=== PATIENT | female | born 1995 | race Caucasian/White ===

== ENCOUNTER 2019-04-15 18:25 | Emergency (ER) | payer OTHER ==
[~2019-04-15] VITALS: Ht 172.7 cm; Wt 92.1 kg
[2019-04-15 18:39] VITALS: BP 124/77
--- NOTE | 2019-04-15 18:56 | NUR ---
C/O L SIDED PELVIC PAIN 6/10 X 1 DAY, ACCOMPANIED BY L BREAST PAIN X 1 WEEK. PT ADDS NAUSEA AND BROWN VAGINAL DISCHARGE. DENIES DYSURIA, FEVER, VOMITING OR DIARRHEA. STATES SHE IS SEXUALLY ACTIVE AND HAS NOT TAKEN HOME TEST. BOWEL SOUNDS ACTIVE IN ALL 4 QUADRANTS, ABDOMEN TENDER TO TOUCH IN LLQ. L UPPER BREAST TENDER TO TOUCH. PT ALERT AND AWAKE. VS STABLE. AMBULATORY WITH STEADY GAIT. HX: NONE RX: NONE
--- NOTE | 2019-04-15 19:10 | NUR ---
RECIEVED REPORT FROM CYNDIE LIZAMA. PATIENT SUPINE IN BED, FRIEND AT BEDSIDE. PROVIDED WITH WARM BLANKET. NO OTHER NEEDS STATED AT THIS TIME.
[2019-04-15] MEDS ORDERED: KETOROLAC 30 MG/ML VIAL IM ONE (19:20)
--- NOTE | 2019-04-15 19:43 | NUR ---
US at bedside.
--- NOTE | 2019-04-15 20:14 | NUR ---
DR TERRELL AT BEDSIDE, CHAPERONED VAGINAL EXAM AND BREAST EXAM. PATIENT TOLERATED WELL.
[2019-04-15 21:25] VITALS: BP 132/78
[2019-04-17 08:09] LABS: CHLAMYDIA TRACHOMATIS AMP DNA Negative (Negative)
== END 2019-04-15 21:22 | disposition home or self-care (01) ==
LOC: MED 18:25
DX: N83.202 Unspecified ovarian cyst, left side (principal)
CPT/HCPCS: 36415; 76856; 87210; 87491; 93976; 96372; 99284; J1885; Q0092

== ENCOUNTER 2019-08-10 05:54 | Emergency (ER) | payer OTHER ==
[~2019-08-10] VITALS: Ht 172.7 cm; Wt 92.1 kg
[2019-08-10 06:02] VITALS: BP 136/86
[2019-08-10 06:52] VITALS: BP 136/86
== END 2019-08-10 06:53 | disposition home or self-care (01) ==
LOC: MED 06:01
DX: J02.9 Acute pharyngitis, unspecified (principal); R05 Cough
CPT/HCPCS: 99283

== ENCOUNTER 2020-10-29 19:14 | Emergency (ER) | payer OTHER ==
[~2020-10-29] VITALS: Ht 172.7 cm; Wt 97.5 kg
[2020-10-29 19:27] VITALS: BP 110/70
--- NOTE | 2020-10-29 20:00 | NUR ---
AT BEDSIDE EVALUATING PT.
--- NOTE | 2020-10-29 20:01 | NUR ---
PT PRESENTED TO ED C/O RT SIDED NUMNBESS AND TINGLING. NO ASYMETRICAL SIGNAL TIMER OR SMILE. A&OX4. DENIES ANY TRUAMA OR INJURY. NO OBVIOUS DEFMORITY NOTED. VSS. STEADY GAIT NOTED. CMS INTACT. 4/10 PAIN. NEG FAST SCREEN. 4M M PERRLA BRISK. CLEAR SPEECH. ALLERGIES: LATEX, AMOXICILLIN, PCN. PMH: UTERINE FIBROIDS
--- NOTE | 2020-10-29 20:05 | NUR ---
CT WITH CONTRAST CONSENT FORM SIGNED BY PT.
[2020-10-29 20:26] LABS: BASOPHILS % (AUTO) 0.2 % (0.0-2.0); EOSINOPHILS # (AUTO) 0.1 K/uL (0-0.4); EOSINOPHILS % (AUTO) 1.1 % (0.0-4.0); HEMATOCRIT 37.3 % (36-48); HEMOGLOBIN 12.6 g/dL (12.0-16.0); LYMPHOCYTES # (AUTO) 2.8 K/uL (2.5-16.5); LYMPHOCYTES % (AUTO) 30.2 % (20.5-51.1); MEAN CORPUSCULAR HEMOGLOBIN 31 pg (27-31); MEAN CORPUSCULAR HGB CONC 34 g/dL (33-37); MEAN CORPUSCULAR VOLUME 90.8 fL (80-94); MONOCYTES # (AUTO) 0.7 K/uL (0.8-1.0); MONOCYTES % (AUTO) 7.6 % (1.7-9.3); NEUTROPHILS # (AUTO) 5.7 K/uL (1.8-7.7); NEUTROPHILS % (AUTO) 60.9 % (42.2-75.2); PLATELET COUNT (AUTO) 224 K/uL (140-450); RED BLOOD CELL COUNT(AUTO) 4.11 MIL/uL (4.20-5.40); RED CELL DISTRIBUTION WIDTH 13.1 % (11.6-13.7); WHITE BLOOD COUNT (AUTO) 9.3 K/uL (4.8-10.8)
--- NOTE | 2020-10-29 20:43 | NUR ---
PT TAKEN TO CT VIA W/C.
[2020-10-29 20:53] LABS: ALBUMIN 3.7 g/dL (3.4-5.0); ANION GAP 14.2 (8-16); CARBON DIOXIDE 23.7 mmol/L (21-32); CREATININE 0.7 mg/dL (0.6-1.3); POTASSIUM 3.9 mmol/L (3.5-5.1); TOTAL BILIRUBIN 0.2 mg/dL (0.0-1.0)
--- NOTE | 2020-10-29 21:05 | NUR ---
PT RETURNED BACK FROM CT VIA W/C.
[2020-10-29 22:00] VITALS: BP 132/76
--- NOTE | 2020-10-29 22:00 | NUR ---
Patient discharged with v/s stable. Written and verbal after care instructions given and explained. Patient alert, oriented and verbalized understanding of instructions. Ambulatory with steady gait. All questions addressed prior to discharge. ID band removed. Patient advised to follow up with PMD. Opportunity to ask questions provided and answered.
== END 2020-10-29 22:00 | disposition home or self-care (01) ==
LOC: MED 19:14
DX: R20.0 Anesthesia of skin (principal); Z88.0 Allergy status to penicillin; Z88.1 Allergy status to other antibiotic agents; Z91.040 Latex allergy status
CPT/HCPCS: 36415; 70470; 80053; 81025; 85025; 99285; Q9967; 99284

== ENCOUNTER 2020-11-01 05:28 | Emergency (ER) | payer OTHER ==
[~2020-11-01] VITALS: Ht 172.7 cm; Wt 97.1 kg
[2020-11-01 05:31] VITALS: BP 141/91
--- NOTE | 2020-11-01 05:31 | NUR ---
TO BED AMBULATORY
[2020-11-01] MEDS ORDERED: KETOROLAC 30 MG/ML VIAL IVP ONE (06:05)
[2020-11-01] MEDS ORDERED: NACL 0.9% 1,000 ML IV ONE (06:05)
--- NOTE | 2020-11-01 06:30 | NUR ---
LABS DRAWN AND TAKEN TO LAB.
[2020-11-01 06:40] LABS: BASOPHILS % (AUTO) 0.2 % (0.0-2.0); EOSINOPHILS # (AUTO) 0.1 K/uL (0-0.4); EOSINOPHILS % (AUTO) 1.1 % (0.0-4.0); HEMATOCRIT 41.2 % (36-48); LYMPHOCYTES # (AUTO) 2.4 K/uL (2.5-16.5); LYMPHOCYTES % (AUTO) 29.3 % (20.5-51.1); MEAN CORPUSCULAR HEMOGLOBIN 31 pg (27-31); MEAN CORPUSCULAR HGB CONC 34 g/dL (33-37); MEAN CORPUSCULAR VOLUME 92.1 fL (80-94); MONOCYTES # (AUTO) 0.4 K/uL (0.8-1.0); MONOCYTES % (AUTO) 4.9 % (1.7-9.3); NEUTROPHILS # (AUTO) 5.3 K/uL (1.8-7.7); NEUTROPHILS % (AUTO) 64.5 % (42.2-75.2); PLATELET COUNT (AUTO) 224 K/uL (140-450); RED BLOOD CELL COUNT(AUTO) 4.47 MIL/uL (4.20-5.40); RED CELL DISTRIBUTION WIDTH 13.2 % (11.6-13.7); WHITE BLOOD COUNT (AUTO) 8.3 K/uL (4.8-10.8)
[2020-11-01 06:54] LABS: ALBUMIN 3.9 g/dL (3.4-5.0); ANION GAP 10.9 (8-16); CARBON DIOXIDE 26.6 mmol/L (21-32); CREATININE 0.7 mg/dL (0.6-1.3); POTASSIUM 3.5 mmol/L (3.5-5.1); TOTAL BILIRUBIN 0.4 mg/dL (0.0-1.0)
--- NOTE | 2020-11-01 07:04 | NUR ---
PT. IS A 25 Y/O FEMALE THAT CAME INTO ED WTH C/O OF LEFT SIDE ABDOMINAL PAIN THAT RADIATES TO VAGINAL AREA. PT. STATES THAT AN HOUR AGO SHE WAS AWAKENED IN HER SLEEP BY THE PAIN. PT. RATES PAIN AT A 9/10 ON THE PAIN SCALE. PT. ALSO STATES THAT SHE WAS DIAGNOSED RECENTLY WITH 8CM CYST IN HER OVARIES. SKIN IS PINK/WARM/DRY; AAOX4 WITH EVEN AND STEADY GAIT; HR EVEN AND REGULAR; PT DENIES ANY FEVER, CP, SOB, OR COUGH AT THIS TIME; VSS; PATIENT POSITIONED FOR COMFORT; HOB ELEVATED; BEDRAILS UP X2; BED DOWN. ER MD MADE AWARE OF PT STATUS.
--- NOTE | 2020-11-01 07:22 | NUR ---
REPORT RECEIVED FROM SYDNEY RN, TRANSFER OF CARE AT THIS TIME
--- NOTE | 2020-11-01 08:30 | NUR ---
PT ALERT AND AWAKE, BREATHING EVEN AND UNLABORED. NO DISTRESS NOTED. ALL NEEDS MET AT THIS TIME.
--- NOTE | 2020-11-01 09:30 | NUR ---
PT ALERT AND AWAKE, BREATHING EVEN AND UNLABORED. NO DISTRESS NOTED. ALL NEEDS MET AT THIS TIME.
[2020-11-01] MEDS ORDERED: IBUP-2213 PO (10:40)
--- NOTE | 2020-11-01 10:55 | NUR ---
Patient discharged with v/s stable. Written and verbal after care instructions about abdominal pain given and explained. Patient alert, oriented and verbalized understanding of instructions. Ambulatory with steady gait. All questions addressed prior to discharge. ID band removed. Patient advised to follow up with PMD. Rx of ibuprofen given. Patient educated on indication of medication including possible reaction and side effects. Opportunity to ask questions provided and answered.
[2020-11-01 10:58] VITALS: BP 123/91
[2020-11-01 13:17] LABS: BILIRUBIN,URINE NEGATIVE (NEGATIVE); BLOOD, URINE TRACE-L (NEGATIVE); COLOR,URINE YELLOW (YELLOW); LEUKOCYTE ESTERASE ,URINE NEGATIVE (NEGATIVE); NITRITE, URINE NEGATIVE (NEGATIVE); UGLUCOSE NEGATIVE (NEGATIVE)
[2020-11-01 13:32] LABS: RBC,URINE 0-5 /HPF (0-5); WBC,URINE 0-5 /HPF (0-5)
[2020-11-01 13:34] LABS: APPEARANCE,URINE SLIGHTLY HAZY (CLEAR)
== END 2020-11-01 10:55 | disposition home or self-care (01) ==
LOC: MED 05:28
DX: R10.30 Lower abdominal pain, unspecified (principal); Z79.899 Other long term (current) drug therapy; Z88.1 Allergy status to other antibiotic agents; Z88.0 Allergy status to penicillin; Z91.040 Latex allergy status
CPT/HCPCS: 36415; 74176; 76856; 80053; 81001; 81025; 82150; 83690; 85025; 93976; 96361; 96374; 99285; J1885; J7030

== ENCOUNTER 2020-11-02 23:57 | Emergency (ER) | payer OTHER ==
[~2020-11-02] VITALS: Ht 172.7 cm; Wt 97.1 kg
[~2020-11-02 23:57] MED LIST: IBUP-2213 PO
[2020-11-03 00:06] VITALS: BP 114/70
--- NOTE | 2020-11-03 00:08 | NUR ---
triaged and waiting in ER lobby.
--- NOTE | 2020-11-03 00:53 | NUR ---
LABS DRAWN IN TRIAGE BY SOLAR ENERGY TECHNICIAN. PATIENT AMBUALTED TO LOBBY WITH STEADY GAIT.
--- NOTE | 2020-11-03 00:57 | NUR ---
Pt ambulated to ER Bed 6 w/ steady gait.
[2020-11-03 01:02] LABS: APPEARANCE,URINE SL CLOUDY (CLEAR); BILIRUBIN,URINE NEGATIVE (NEGATIVE); BLOOD, URINE 2+ (NEGATIVE); COLOR,URINE YELLOW (YELLOW); LEUKOCYTE ESTERASE ,URINE NEGATIVE (NEGATIVE); NITRITE, URINE NEGATIVE (NEGATIVE); PH,URINE 5.5 (5.0-9.0); UGLUCOSE NEGATIVE (NEGATIVE)
[2020-11-03 01:03] LABS: BASOPHILS % (AUTO) 0.3 % (0.0-2.0); EOSINOPHILS # (AUTO) 0.1 K/uL (0-0.4); EOSINOPHILS % (AUTO) 1.1 % (0.0-4.0); HEMATOCRIT 38.2 % (36-48); HEMOGLOBIN 12.8 g/dL (12.0-16.0); LYMPHOCYTES # (AUTO) 2.6 K/uL (2.5-16.5); LYMPHOCYTES % (AUTO) 33.3 % (20.5-51.1); MEAN CORPUSCULAR HEMOGLOBIN 31 pg (27-31); MEAN CORPUSCULAR HGB CONC 34 g/dL (33-37); MEAN CORPUSCULAR VOLUME 91.9 fL (80-94); MONOCYTES # (AUTO) 0.5 K/uL (0.8-1.0); MONOCYTES % (AUTO) 6.2 % (1.7-9.3); NEUTROPHILS # (AUTO) 4.5 K/uL (1.8-7.7); NEUTROPHILS % (AUTO) 59.1 % (42.2-75.2); PLATELET COUNT (AUTO) 220 K/uL (140-450); RED BLOOD CELL COUNT(AUTO) 4.15 MIL/uL (4.20-5.40); RED CELL DISTRIBUTION WIDTH 12.9 % (11.6-13.7); WHITE BLOOD COUNT (AUTO) 7.7 K/uL (4.8-10.8)
[2020-11-03 01:25] LABS: CARBON DIOXIDE 24.7 mmol/L (21-32); CREATININE 0.7 mg/dL (0.6-1.3); POTASSIUM 3.7 mmol/L (3.5-5.1)
[2020-11-03 01:32] LABS: ALBUMIN 3.5 g/dL (3.4-5.0); TOTAL BILIRUBIN 0.3 mg/dL (0.0-1.0)
[2020-11-03 01:40] LABS: RBC,URINE 0-5 /HPF (0-5); WBC,URINE 0-5 /HPF (0-5)
--- NOTE | 2020-11-03 02:00 | NUR ---
Dr. King with pt for reassessment.
[2020-11-03] MEDS ORDERED: NITR100C7 PO (03:12)
[2020-11-03 03:20] VITALS: BP 113/70
== END 2020-11-03 03:20 | disposition home or self-care (01) ==
LOC: MED 23:57
DX: N83.209 Unspecified ovarian cyst, unspecified side (principal); R10.33 Periumbilical pain; Z88.0 Allergy status to penicillin; Z88.1 Allergy status to other antibiotic agents; Z91.040 Latex allergy status; Z79.899 Other long term (current) drug therapy
CPT/HCPCS: 36415; 80053; 81001; 82150; 83690; 84703; 85025; 87086; 99283

== ENCOUNTER 2020-12-30 15:58 | Emergency (ER) | payer OTHER ==
[~2020-12-30] VITALS: Ht 172.7 cm; Wt 93.9 kg
[~2020-12-30 15:58] MED LIST changes: +NITR100C7 PO
[2020-12-30 16:04] VITALS: BP 110/70
[2020-12-30] MEDS ORDERED: BACI1PAC6 TP (16:37)
[2020-12-30 17:01] VITALS: BP 110/70
--- NOTE | 2020-12-30 17:01 | NUR ---
Patient discharged with v/s stable. Written and verbal after care instructions about burn care given and explained. Patient alert, oriented and verbalized understanding of instructions. Ambulatory with steady gait. All questions addressed prior to discharge. ID band removed. Patient advised to follow up with PMD. Rx of bacitracin given. Patient educated on indication of medication including possible reaction and side effects. Opportunity to ask questions provided and answered.
== END 2020-12-30 17:01 | disposition home or self-care (01) ==
LOC: MED 15:58
DX: T23.212A Burn of second degree of left thumb (nail), initial encounter (principal); Z88.0 Allergy status to penicillin; Z88.1 Allergy status to other antibiotic agents; Z91.040 Latex allergy status; Z79.899 Other long term (current) drug therapy; X08.8XXA Exposure to other specified smoke, fire and flames, initial encounter; Y93.G3 Activity, cooking and baking; Y92.89 Other specified places as the place of occurrence of the external cause; Y99.8 Other external cause status
CPT/HCPCS: 16000; 99282

== ENCOUNTER 2021-01-05 12:03 | Emergency (ER) | payer OTHER ==
[~2021-01-05] VITALS: Ht 172.7 cm; Wt 95.3 kg
[~2021-01-05 12:03] MED LIST changes: +BACI1PAC6 TP
[2021-01-05 12:28] VITALS: BP 121/55
[2021-01-05] MEDS ORDERED: CLIN1GEL2 TP (13:31)
[2021-01-05 13:43] VITALS: BP 129/73
--- NOTE | 2021-01-05 13:43 | NUR ---
Patient discharged with v/s stable. Written and verbal after care instructions ABOUT CELLULITIS given and explained. Patient alert, oriented and verbalized understanding of instructions. Ambulatory with steady gait. All questions addressed prior to discharge. ID band removed. Patient advised to follow up with PMD. Rx of CLINDAMYCIN given. Patient educated on indication of medication including possible reaction and side effects. Opportunity to ask questions provided and answered.
--- NOTE | 2021-01-05 13:43 | NUR ---
NO NURSING INTERVENTIONS NEEDED OR GIVEN
== END 2021-01-05 13:43 | disposition home or self-care (01) ==
LOC: MED 12:03
DX: L03.313 Cellulitis of chest wall (principal); Z88.0 Allergy status to penicillin; Z88.1 Allergy status to other antibiotic agents; Z91.040 Latex allergy status
CPT/HCPCS: 99283

== ENCOUNTER 2021-02-24 21:03 | Emergency (ER) | payer OTHER ==
[~2021-02-24 21:03] MED LIST changes: +CLIN1GEL2 TP
--- NOTE | 2021-02-25 02:30 | NUR ---
PATIENT LEFT WITHOUT BEING SEEN BY DR. TERRELL. NO FURTHER CARE PROVIDED FOR PATIENT.
== END 2021-02-25 02:30 | disposition left against medical advice (07) ==
LOC: MED 21:03
DX: R10.9 Unspecified abdominal pain (principal); Z53.21 Procedure and treatment not carried out due to patient leaving prior to being seen by health care provider

== ENCOUNTER 2021-04-10 08:35 | Emergency (ER) | payer OTHER ==
[~2021-04-10] VITALS: Ht 172.7 cm; Wt 97.1 kg
[2021-04-10 08:49] VITALS: BP 137/82
--- NOTE | 2021-04-10 08:57 | NUR ---
AMBULATED TO BED 11
--- NOTE | 2021-04-10 09:05 | NUR ---
25-year-old female coming in for vaginal bleeding with clotting for three weeks. Patient reports starting control pill two months ago and has been having cramping with bleeding. Patient spoke with UNDERGROUND SUPERVISOR and was instructed to come to ER, reports heavy bleeding 1 pad per hour. Patient is complaining of pelvic pain 6/10, cramping sensation. Last menstrual period was 02/06/21. Patient denies vaginal discharge, odor, dysuria, hematuria, nausea, vomiting, diarrhea. pmh: endometriosis, ovarian cyst nka med: control po 2 mo ago
--- NOTE | 2021-04-10 09:11 | NUR ---
doryd speaking with pt at this time
--- NOTE | 2021-04-10 09:16 | NUR ---
Ultrasound at bedside.
[2021-04-10 10:04] LABS: BASOPHILS % (AUTO) 0.7 % (0.0-2.0); EOSINOPHILS # (AUTO) 0.1 K/uL (0-0.4); EOSINOPHILS % (AUTO) 1.2 % (0.0-4.0); HEMATOCRIT 39.8 % (36-48); HEMOGLOBIN 13.5 g/dL (12.0-16.0); LYMPHOCYTES # (AUTO) 1.7 K/uL (2.5-16.5); MEAN CORPUSCULAR HEMOGLOBIN 30 pg (27-31); MEAN CORPUSCULAR HGB CONC 34 g/dL (33-37); MEAN CORPUSCULAR VOLUME 88.4 fL (80-94); MONOCYTES # (AUTO) 0.3 K/uL (0.8-1.0); MONOCYTES % (AUTO) 6.3 % (1.7-9.3); NEUTROPHILS # (AUTO) 3.5 K/uL (1.8-7.7); NEUTROPHILS % (AUTO) 61.8 % (42.2-75.2); PLATELET COUNT (AUTO) 279 K/uL (140-450); WHITE BLOOD COUNT (AUTO) 5.6 K/uL (4.8-10.8)
[2021-04-10 10:42] VITALS: BP 137/82
--- NOTE | 2021-04-10 10:43 | NUR ---
Patient discharged with v/s stable. Written and verbal after care instructions given and explained. Patient verbalized understanding. Ambulatory with steady gait. All questions addressed prior to discharge. Advised to follow up with PMD.
== END 2021-04-10 10:43 | disposition home or self-care (01) ==
LOC: MED 08:35
DX: N93.8 Other specified abnormal uterine and vaginal bleeding (principal); Z79.899 Other long term (current) drug therapy; Z88.1 Allergy status to other antibiotic agents; Z88.0 Allergy status to penicillin; Z91.040 Latex allergy status; Z98.890 Other specified postprocedural states
CPT/HCPCS: 36415; 76830; 81002; 81025; 85025; 99284; Q0092

== ENCOUNTER 2021-09-07 23:02 | Emergency (ER) | payer OTHER ==
[~2021-09-07] VITALS: Ht 172.7 cm; Wt 95.3 kg
[2021-09-07 23:27] VITALS: BP 118/69
--- NOTE | 2021-09-07 23:31 | NUR ---
pt ambulatory to bed 06.
--- NOTE | 2021-09-07 23:50 | NUR ---
Dr. Cunningham at bedside to exam patient.
[2021-09-07] MEDS ORDERED: ACETAMINOPHEN 325 MG TAB PO ONE (23:55)
[2021-09-08 00:11] LABS: BASOPHILS % (AUTO) 0.2 % (0.0-2.0); EOSINOPHILS # (AUTO) 0.1 K/uL (0-0.4); HEMATOCRIT 39.9 % (36-48); HEMOGLOBIN 13.5 g/dL (12.0-16.0); LYMPHOCYTES # (AUTO) 3.1 K/uL (2.5-16.5); LYMPHOCYTES % (AUTO) 37.4 % (20.5-51.1); MEAN CORPUSCULAR HEMOGLOBIN 31 pg (27-31); MEAN CORPUSCULAR HGB CONC 34 g/dL (33-37); MEAN CORPUSCULAR VOLUME 92.6 fL (80-94); MONOCYTES # (AUTO) 0.5 K/uL (0.8-1.0); MONOCYTES % (AUTO) 6.2 % (1.7-9.3); NEUTROPHILS # (AUTO) 4.6 K/uL (1.8-7.7); NEUTROPHILS % (AUTO) 55.2 % (42.2-75.2); PLATELET COUNT (AUTO) 215 K/uL (140-450); RED BLOOD CELL COUNT(AUTO) 4.31 MIL/uL (4.20-5.40); RED CELL DISTRIBUTION WIDTH 12.9 % (11.6-13.7); WHITE BLOOD COUNT (AUTO) 8.4 K/uL (4.8-10.8)
[2021-09-08 00:12] LABS: APPEARANCE,URINE CLEAR (CLEAR); BILIRUBIN,URINE NEGATIVE (NEGATIVE); BLOOD, URINE TRACE-I (NEGATIVE); COLOR,URINE YELLOW (YELLOW); LEUKOCYTE ESTERASE ,URINE TRACE (NEGATIVE); NITRITE, URINE NEGATIVE (NEGATIVE); PH,URINE 6.5 (5.0-9.0); UGLUCOSE NEGATIVE (NEGATIVE)
--- NOTE | 2021-09-08 00:15 | NUR ---
URINE COLLECTED AND SENT TO LAB
[2021-09-08 00:25] LABS: RBC,URINE 0-5 /HPF (0-5); WBC,URINE 0-5 /HPF (0-5)
[2021-09-08 00:37] LABS: ALBUMIN 3.8 g/dL (3.4-5.0); ANION GAP 10.2 (8-16); CARBON DIOXIDE 27.6 mmol/L (21-32); CREATININE 0.8 mg/dL (0.6-1.3); POTASSIUM 3.8 mmol/L (3.5-5.1); TOTAL BILIRUBIN 0.2 mg/dL (0.0-1.0)
--- NOTE | 2021-09-08 01:16 | NUR ---
ER MD TERRELL AT BEDSIDE
[2021-09-08] MEDS ORDERED: NITR100C7 PO (01:27)
[2021-09-08] MEDS ORDERED: NAPR-54 PO (01:27)
[2021-09-08 01:48] VITALS: BP 112/63
--- NOTE | 2021-09-08 01:48 | NUR ---
Patient discharged with v/s stable. Written and verbal after care instructions given and explained. Patient alert, oriented and verbalized understanding of instructions. Ambulatory with steady gait. All questions addressed prior to discharge. ID band removed. Patient advised to follow up with PMD. Rx of Naproxen and Macrobid given. Patient educated on indication of medication including possible reaction and side effects. Opportunity to ask questions provided and answered.
--- NOTE | 2021-09-08 01:49 | NUR ---
The patient's care was reviewed and supervised by Doreen Pascal RN.
== END 2021-09-08 01:48 | disposition home or self-care (01) ==
LOC: MED 23:02
DX: R82.71 Bacteriuria (principal); R10.2 Pelvic and perineal pain; Z98.890 Other specified postprocedural states; Z79.2 Long term (current) use of antibiotics; Z79.1 Long term (current) use of non-steroidal anti-inflammatories (NSAID); Z88.0 Allergy status to penicillin; Z91.040 Latex allergy status
CPT/HCPCS: 36415; 80053; 81001; 84703; 85025; 87086; 99283